=== PATIENT | male | born 1995 | race Two or more races ===

== ENCOUNTER 2023-01-13 20:53 | Emergency (ER) | payer BC, OTHER ==
[~2023-01-13] VITALS: Ht 177.8 cm; Wt 63.9 kg
[2023-01-14] MEDS ORDERED: IBUP-1456 PO (05:30)
[2023-01-14] MEDS ORDERED: CEPH500C PO (05:30)
[2023-01-14 06:16] VITALS: BP 132/78; PULSE 79; RESP 19; TEMP 98; O2SAT 96
== END 2023-01-14 06:30 | disposition home or self-care (01) ==
LOC: ER 20:53
DX: L03.211 Cellulitis of face (principal)